=== PATIENT | male | born 1980 | race Caucasian/White ===

== ENCOUNTER 2017-04-10 12:05 | Day surgery (SDC) | payer OTHER ==
[~2017-04-10] VITALS: Ht 190.5 cm; Wt 107.3 kg
[2017-04-10] MEDS ORDERED: KETOROLAC 30 MG/ML VIAL (J1885) IV ONE (13:00)
[2017-04-10] MEDS ORDERED: GASTROGRAFIN SOLUTION 30ML PO ONE (13:15)
[2017-04-10 13:37] LABS: BASO % 0.3 % (0.0-1.0); EOS % 0.1 % (0.0-3.0); LARGE UNSTAINED CELL # 0.4 K/mm3 (0.0-0.4); LYMPH # 1.7 K/mm3 (1.5-4.5); MEAN CORPUSCULAR HEMOGLOBIN 32.6 pg (27.0-33.0); MEAN CORPUSCULAR HGB CONC 35.7 g/dl (32.0-36.5); MEAN CORPUSCULAR VOLUME 91.3 fl (80.0-96.0); MONO # 1.2 K/mm3 (0.0-0.8); NEUTROPHILS % 76.6 % (36.0-66.0); PLATELET COUNT, AUTOMATED 243 k/mm3 (150-450); RED CELL DISTRIBUTION WIDTH 11.7 % (11.5-14.5); WHITE BLOOD COUNT 14.4 K/mm3 (4.0-10.0)
[2017-04-10] MEDS ORDERED: GASTROGRAFIN SOLUTION 30ML (Q9963) PO ONE (13:45)
[2017-04-10 13:54] LABS: ALBUMIN 3.7 GM/DL (3.2-5.2); ALBUMIN/GLOBULIN RATIO 1.23 (1.00-1.93); ALKALINE PHOSPHATASE 91 U/L (45-117); ALT/SGPT 51 U/L (12-78); ANION GAP 11 MEQ/L (8-16); AST/SGOT 22 U/L (15-37); BILIRUBIN,DIRECT 0.2 MG/DL (0.0-0.2); BILIRUBIN,TOTAL 0.9 MG/DL (0.2-1.0); BLOOD UREA NITROGEN 12 MG/DL (7-18); CALCIUM LEVEL 7.7 MG/DL (8.5-10.1); CARBON DIOXIDE LEVEL 24 MEQ/L (21-32); CHLORIDE LEVEL 109 MEQ/L (98-107); CREATININE FOR GFR 0.86 MG/DL (0.70-1.30); GLOMERULAR FILTRATION RATE > 60.0 (>60); GLUCOSE, FASTING 103 MG/DL (70-105); POTASSIUM SERUM 3.6 MEQ/L (3.5-5.1); SODIUM LEVEL 144 MEQ/L (136-145); TOTAL PROTEIN 6.7 GM/DL (6.4-8.2)
--- NOTE | 2017-04-10 14:53 | REP ---
Clinical: Right lower quadrant pain. Findings: The mid appendix demonstrates mural thickening and measures up to 9 mm diameter which is concerning for early acute appendicitis and requires close clinical observation. No significant associated periappendiceal stranding or fluid is appreciated. Liver, spleen, pancreas, gallbladder, bilateral adrenal glands and kidneys are normal. Specifically, no perinephric stranding, hydroureteronephrosis, intrarenal or obstructing ureteral calculi are identified. The enteric system includes small hiatal hernia at the gastroesophageal junction and no evidence for bowel obstruction. Pelvis demonstrates normal bladder and age appropriate prostate/seminal vesicles. No ascites. No free air. No adenopathy. Abdominal aorta without aneurysm. Surrounding musculoskeletal structures are intact; chronic L5 spondylolysis without spondylolisthesis noted. Lung bases are clear. Visualized heart and pericardium normal. Impression: Mural thickening and focal distension to the appendix measuring up to 9 mm without surrounding periappendiceal stranding or fluid. Findings may represent early acute appendicitis and close clinical observation is recommended. Signed by Miguel Bailey MD 04/10/2017 02:44 P
[2017-04-10] MEDS ORDERED: KETOROLAC 30 MG/ML VIAL (J1885) IV PRN (18:30)
[2017-04-10] MEDS ORDERED: ONDANSETRON 4MG/2ML VIAL (J2405) IV PRN ×2 (18:30→20:15)
[2017-04-10] MEDS ORDERED: MOM 30ML SUSPENSION UDC PO PRN (18:30)
[2017-04-10] MEDS ORDERED: ACETAMINOPHEN TAB 650MG DOSE (2X325MG) PO PRN (18:30)
[2017-04-10] MEDS ORDERED: MORPHINE 2 MG/ML 1ML SYRINGE IV PRN (18:30)
[2017-04-10] MEDS ORDERED: ZOSYN 3.375 GM VIAL (J2543) As Ordered ONE (18:41)
--- NOTE | 2017-04-10 18:44 | HPE ---
DATE OF ADMISSION: 04/10/2017 CHIEF COMPLAINT: Right lower quadrant pain. HISTORY OF PRESENT ILLNESS: The patient is a 36-year-old male who presents with right lower quadrant pain started at 06:00 p.m. last evening, started off as generalized pain that he had nausea and vomiting throughout the evening. This morning the pain localized more towards the right side. He came in to the emergency room for evaluation. In the ER he was slightly tachycardiac. Had an elevated white count around 14,[address] findings consistent with early appendicitis. I was then called to evaluate down in the ER. He currently is comfortable. Pain is still in the right lower quadrant. Starting to get a little bit increased in intensity. No more problems nausea or vomiting. No fevers reported no recent travel or injury to the area. PAST MEDICAL HISTORY: Negative. PAST SURGICAL HISTORY: Negative. ALLERGIES: None. HOME MEDICATIONS: None. SOCIAL HISTORY: Denies any drug, alcohol, tobacco. FAMILY HISTORY: Noncontributory. REVIEW OF SYSTEMS: Pertinent, positives, and negative in the history of present illness. PHYSICAL EXAMINATION: GENERAL: Alert and oriented times three. No acute distress. VITAL SIGNS: Temperature 99.8, pulse 74, respirations 18, blood pressure 146/83, pulse ox 97% room air. HEENT: Pupils equal round reactive to light and accommodation. HEART: S1-S2 regular rate and rhythm. LUNGS: Clear to auscultation bilaterally. ABDOMEN: Soft, tender to palpation right lower quadrant. Localized guarding, no rebounding or rigidity. EXTREMITIES: No cyanosis or edema. LABORATORY DATA: White count 14.4, hemoglobin 16.7, platelets 243, potassium 3.6, lactic acid 2.2. IMAGING STUDIES: CT abdomen and pelvis shows mural thickening and focal distension of the appendix measuring up to 9 mm without any periappendiceal fat stranding or fluid. These findings suggest early acute appendicitis. ASSESSMENT/PLAN: The patient 36-year-old male with signs and symptoms consistent with acute appendicitis. RECOMMENDATIONS: Proceed with laparoscopic, possible open appendectomy. Risks, benefits of the procedure not limited but including bleeding, infection, hernia formation, damage surrounding structures, need further surgery was discussed in detail with the patient. Informed consent was obtained, procedure was planned for this evening. Postoperatively he will be placed on a regular diet, kept overnight for observation. As long as he is afebrile and his white count remains stable by morning he will be discharge home to follow up with me in the office.
[2017-04-10] MEDS ORDERED: BUPIVACAINE/EPIN 0.25% 30 ML VIAL As Ordered ONE (18:56)
[2017-04-10] MEDS ORDERED: PIPERACILLIN/TAZOBACTAM SOD 3.375 GM in D5W MINI-BAG PLUS 50 ML IV SCH (20:00)
[2017-04-10] MEDS: fentaNYL 100 MCG/2 ML INJECTION (J3010) IV PRN ×2 (20:15→20:22)
[2017-04-10] MEDS ORDERED: HYDROmorphone HCL 1 MG/ML SYRINGE (J1170) IV PRN (20:15)
[2017-04-10] MEDS ORDERED: LR 1,000 ML IV SCH (20:15)
[2017-04-10] MEDS ORDERED: PERCOCET 5MG/325MG TAB PO PRN (20:15)
[2017-04-10] MEDS: SENOKOT S TAB PO SCH (22:24)
[2017-04-10] MEDS: NORCO, ANEXSIA 5/325MG TABLET (HYDROcodone/ACETAMINOPHEN) PO PRN (22:24)
[2017-04-10] MEDS: LR 1,000 ML IV SCH (22:25)
[2017-04-10 22:30] VITALS: BP 122/71
[2017-04-10 23:00] VITALS: BP 111/62
[2017-04-11] VITALS: BP 111/65
[2017-04-11 01:00] VITALS: BP 120/63
[2017-04-11] MEDS: PIPERACILLIN/TAZOBACTAM SOD 3.375 GM in D5W MINI-BAG PLUS 50 ML IV SCH ×2 (01:27→08:00)
[2017-04-11] MEDS: LR 1,000 ML IV SCH ×2 (01:39→08:22)
[2017-04-11 02:00] VITALS: BP 128/72
[2017-04-11 03:00] VITALS: BP 113/66
[2017-04-11] MEDS: NORCO, ANEXSIA 5/325MG TABLET (HYDROcodone/ACETAMINOPHEN) PO PRN (05:36)
[2017-04-11 06:00] VITALS: BP 114/72
[2017-04-11 06:58] LABS: MEAN CORPUSCULAR HEMOGLOBIN 32.2 pg (27.0-33.0); MEAN CORPUSCULAR HGB CONC 34.3 g/dl (32.0-36.5); MEAN CORPUSCULAR VOLUME 93.7 fl (80.0-96.0); RED CELL DISTRIBUTION WIDTH 12.1 % (11.5-14.5); WHITE BLOOD COUNT 11.6 K/mm3 (4.0-10.0)
[2017-04-11 07:19] LABS: ANION GAP 7 MEQ/L (8-16); BLOOD UREA NITROGEN 13 MG/DL (7-18); CALCIUM LEVEL 8.7 MG/DL (8.5-10.1); CARBON DIOXIDE LEVEL 27 MEQ/L (21-32); CHLORIDE LEVEL 107 MEQ/L (98-107); CREATININE FOR GFR 1.05 MG/DL (0.70-1.30); GLOMERULAR FILTRATION RATE > 60.0 (>60); GLUCOSE, FASTING 120 MG/DL (70-105); MAGNESIUM LEVEL 2.2 MG/DL (1.8-2.4); POTASSIUM SERUM 4.6 MEQ/L (3.5-5.1); SODIUM LEVEL 141 MEQ/L (136-145)
--- NOTE | 2017-04-11 08:15 | RO ---
DATE OF PROCEDURE: 04/10/2017 PREOPERATIVE DIAGNOSIS: Acute appendicitis. POSTOPERATIVE DIAGNOSIS: Acute appendicitis. PROCEDURE: Laparoscopic appendectomy. SURGEON: Dr. Zackery Loja. TRANSMISSION AND COORDINATION ENGINEER: None. ANESTHESIA: General ESTIMATED BLOOD LOSS: 5 mL. COMPLICATIONS: None. INDICATIONS FOR PROCEDURE: The patient is 36-year-old male who presents with right lower quadrant abdominal pain found to have acute appendicitis on CT scan. The risks, recommendations and procedure with laparoscopic as well as possible open appendectomy. Risks and benefits of the procedure not limited but including bleeding, infection, hernia formation damage to surrounding structure, need further surgery were discussed in detail with the patient and formed was obtained. The procedure was planned. DESCRIPTION OF PROCEDURE: The patient was brought back to operating room three after sufficient sedation, the abdomen was sterilely prepped, draped. Next time-out was done to confirm proper patient and proper procedure. Following that, a 5 mm incision made in the left upper quadrant at Evangelista's point. Veress needle was inserted and the abdomen was insufflated to 50 mmHg. Next the Veress needle was removed. 5 mm operating port was used to gain access to the abdomen. Once the abdomen was entered, an 8 mm port was placed at the umbilicus, 5 mm port suprapubically in the midline. The appendix was then elevated up into the air. Mesoappendix was taken down using Enseal. Two PCS Endoloops were then placed around base of the appendix to ligate it and then it was amputated using the Enseal. The appendix was then brought out through the umbilical port site in a 5 mm EndoCatch bag. The abdomen was then desufflated. Skin incision closed with # 4-0 Vicryl subcuticular sutures. The abdomen was cleaned and dried. Steri-Strips, 4x4, and tape were applied thus ending the procedure.
[2017-04-11] MEDS: SENOKOT S TAB PO SCH (08:22)
[2017-04-11] MEDS ORDERED: PANTOPRAZOLE 40MG TAB (PROTONIX) PO SCH (09:00)
[2017-04-11] MEDS ORDERED: SENN1TAB2 PO (09:21)
[2017-04-11] MEDS ORDERED: NORCOTAB PO (09:21)
--- NOTE | 2017-04-11 16:08 | DSES ---
DATE OF ADMISSION: 04/10/2017 DATE OF DISCHARGE: 04/11/2017 ADMISSION DIAGNOSIS: Acute appendicitis. DISCHARGE DIAGNOSIS: Acute appendicitis. HOSPITAL COURSE: The patient is a 36-year-old male who presented with acute appendicitis. He was taken to the operating room for urgent laparoscopic appendectomy last evening. Postoperatively, he was on a regular diet. This morning, he is doing well and pain is controlled, much improved from admission. No fevers overnight. Denies nausea or vomiting. He is tolerating a diet and has been ambulating in the halls and urinating without any difficulty. The plan is to discharge home today. He can shower this evening. No baths for five days, leaving the Steri-Strips in place. No lifting more than 20 pounds and he will followup with me in the office in two weeks for his followup appointment.
== END 2017-04-11 11:20 | disposition home or self-care (01) ==
LOC: M ED 12:05 → M SDC 18:00 → M MS5PR 21:42 → M SDC 04-11 11:20
PROVIDERS: ATTEND Surgery
DX: K35.80 Unspecified acute appendicitis (principal)
CPT/HCPCS: 36415; 44970; 74176; 80048; 80076; 81001; 83605; 83690; 83735; 85025; 85027; 88304; 96374; 96375; 96376; 99284; J1885; J2543; J3010; Q9963

== ENCOUNTER → 2017-04-10 | Outpatient (REF) | payer OTHER ==
[~2017-04-10] MED LIST: NORCOTAB PO; SENN1TAB2 PO
== END ==
LOC: M SFHCLERA 11:14
PROVIDERS: ATTEND Physician Assistant
DX: R31.9 Hematuria, unspecified (principal); Z53.9 Procedure and treatment not carried out, unspecified reason

== ENCOUNTER → 2019-05-17 | Outpatient (REF) | payer OTHER ==
[~2019-05-17] MED LIST changes: +HYDR-3715 PO; -NORCOTAB PO; -SENN1TAB2 PO; +SENN1TAB40 PO
== END ==
LOC: M LAB REF 08:27
PROVIDERS: ATTEND Physician Assistant
DX: J02.9 Acute pharyngitis, unspecified (principal)